=== PATIENT | male | born 1965 | race Asian ===

== ENCOUNTER → 2024-09-09 06:40 | Outpatient (REF) | payer OTHER, SELFPAY | LOC: HWRAD 06:40 | PROVIDERS: ATTENDING PHYSICIAN Physician Assistant Medical | DX: R10.13 Epigastric pain (principal) | CPT/HCPCS: 72072; 76700 ==

== ENCOUNTER 2024-09-10 06:24 | Day surgery (SDC) | payer OTHER, SELFPAY | END 2024-09-10 15:05 | LOC: GI 06:24 | PROVIDERS: ATTENDING PHYSICIAN Internal Medicine Gastroenterology | DX: R10.33 Periumbilical pain (principal); R13.10 Dysphagia, unspecified; K31.7 Polyp of stomach and duodenum; K31.89 Other diseases of stomach and duodenum; K29.50 Unspecified chronic gastritis without bleeding; K31.A15 Gastric intestinal metaplasia without dysplasia, involving multiple sites | CPT/HCPCS: 43239; 88305; 88342 ==